=== PATIENT | female | born 1970 | race African-American/Black ===

== ENCOUNTER 2016-11-12 22:08 | Inpatient (IN) | payer SELFPAY ==
[~2016-11-12] VITALS: Ht 177.8 cm; Wt 76.2 kg
[2016-11-13] MEDS ORDERED: NITROGLYCERIN OINT 1GM/INCH UDPKT TD ONE (00:15)
[2016-11-13] MEDS ORDERED: ASPIRIN 81MG TABLET PO ONE (00:15)
[2016-11-13 00:41] LABS: BASOPHILS % 0.6 % (0.0-2.0); DIFFERENTIAL COMMENT 0; EOSINOPHILS % 2.7 % (0.0-5.0); HEMATOCRIT. 30.2 % (36.0-48.0); HEMOGLOBIN. 9.3 g/dL (12.0-16.0); MEAN CORPUSCULAR HEMOGLOBIN 22.2 pg (28.0-32.0); MEAN CORPUSCULAR HGB CONC 30.7 g/dL (31.0-37.0); MEAN CORPUSCULAR VOLUME 72.3 fL (81.0-99.0); MONOCYTES % 7.9 % (2.0-8.0); NEUTROPHILS % 60.8 % (40.0-76.0); PLATELET 219 x1000/uL (130-400); RED BLOOD CELL COUNT 4.17 mill/uL (4.2-5.4); RED CELL DISTRIBUTION WIDTH 15.9 % (11.6-14.6); WHITE BLOOD COUNT 6.1 x1000/uL (4.5-11.0)
[2016-11-13 00:55] LABS: ALANINE AMINOTRANSFERASE 32 IU/L (13-61); ALBUMIN 2.3 g/dL (3.4-5.0); ANION GAP 14; CALCIUM 7.5 mg/dL (8.5-10.1); CARBON DIOXIDE 20 mEq/L (21-32); CHLORIDE 106 mEq/L (98-107); ETHANOL BLOOD < 10 mg/dL; INDEX HEMOLYSI 1 (1-3); INDEX ICTERIC 1 (1-4); INDEX LIPEMIC 1 (1-3); NT PRO B-TYPE NATRIURETIC PEP 3768 pg/mL (5-125); TROPONIN I 0.05 ng/mL (0.00-0.04); UREA NITROGEN BLOOD 30 mg/dL (7-21); eGFR 23 mL/min (>60)
[2016-11-13] MEDS ORDERED: INSULIN REGULAR (HUMULIN R) 300UNITS/3ML SUBCUT ONE (05:30)
[2016-11-13 06:30] VITALS: BP 166/83
[2016-11-13 08:00] VITALS: BP_SYST 137; BP_SYST 166; BP_DIAS 73; BP_DIAS 83
[2016-11-13] MEDS ORDERED: DEXTROSE 50% WATER 50ML SYRINGE IV PRN (10:00)
[2016-11-13] MEDS ORDERED: CLONIDINE 0.1MG TABLET PO PRN (10:00)
[2016-11-13] MEDS ORDERED: ACETAMINOPHEN 325MG TABLET PO PRN (10:00)
[2016-11-13] MEDS: BLOOD SUGAR DIAGNOSTIC STRIP TEST SCH ×3 (11:32→21:45)
[2016-11-13] MEDS: INSULIN LISPRO 100 UNITS/ML SUBCUT SCH ×3 (11:36→21:00)
[2016-11-13] MEDS: CLOPIDOGREL 75MG TABLET PO SCH (11:49)
[2016-11-13] MEDS: INSULIN DETEMIR UD 100 UNITS/ML SYR SUBCUT SCH (11:50)
[2016-11-13] MEDS: FUROSEMIDE 40MG/4ML VIAL IV SCH (11:50)
[2016-11-13 12:00] VITALS: BP 102/71
[2016-11-13] MEDS: HYDROMORPHONE HCL/PF 2MG/ML CPJ IV PRN (13:52)
[2016-11-13 15:13] LABS: TROPONIN I 0.06 ng/mL (0.00-0.04)
[2016-11-13] MEDS: ONDANSETRON HCL 4MG/2ML VIAL IV PRN ×2 (15:42→21:45)
[2016-11-13 16:00] VITALS: BP 148/84
[2016-11-13] MEDS ORDERED: ISOS30TA6 PO (17:12)
[2016-11-13] MEDS ORDERED: ASPI-1035 PO (17:12)
[2016-11-13] MEDS ORDERED: CLOP75TA33 PO (17:12)
[2016-11-13] MEDS ORDERED: LORA5SOL6 PO (17:12)
[2016-11-13] MEDS ORDERED: ATOR10TA PO (17:12)
[2016-11-13] MEDS ORDERED: CARV3.1242 PO (17:12)
[2016-11-13] MEDS ORDERED: INSU3INS6 SUBCUT (17:12)
[2016-11-13 20:00] VITALS: BP 134/73
[2016-11-13] MEDS: CARVEDILOL 3.125 MG TABLET PO SCH (21:45)
[2016-11-14] VITALS: BP 179/99
[2016-11-14 00:06] LABS: TROPONIN I 0.05 ng/mL (0.00-0.04)
[2016-11-14] MEDS: HYDROMORPHONE HCL/PF 2MG/ML CPJ IV PRN (00:18)
[2016-11-14 04:00] VITALS: BP 163/92
[2016-11-14] MEDS: BLOOD SUGAR DIAGNOSTIC STRIP TEST SCH ×3 (06:06→17:08)
[2016-11-14] MEDS: ONDANSETRON HCL 4MG/2ML VIAL IV PRN (06:27)
[2016-11-14] MEDS: INSULIN LISPRO 100 UNITS/ML SUBCUT SCH ×3 (06:49→17:40)
[2016-11-14 08:00] VITALS: BP 161/86
[2016-11-14] MEDS ORDERED: ASPIRIN 81MG EC TABLET PO SCH (09:00)
[2016-11-14] MEDS: FUROSEMIDE 40MG/4ML VIAL IV SCH (09:47)
[2016-11-14] MEDS: CLOPIDOGREL 75MG TABLET PO SCH (09:48)
[2016-11-14] MEDS: CARVEDILOL 3.125 MG TABLET PO SCH (09:48)
[2016-11-14] MEDS: INSULIN DETEMIR UD 100 UNITS/ML SYR SUBCUT SCH (09:49)
[2016-11-14 11:14] LABS: BASOPHILS % 0.6 % (0.0-2.0); DIFFERENTIAL COMMENT 0; EOSINOPHILS % 1.9 % (0.0-5.0); HEMATOCRIT. 31.2 % (36.0-48.0); HEMOGLOBIN. 9.6 g/dL (12.0-16.0); LYMPHOCYTES % 28.7 % (20.0-50.0); MEAN CORPUSCULAR HGB CONC 30.7 g/dL (31.0-37.0); MEAN CORPUSCULAR VOLUME 71.8 fL (81.0-99.0); MEAN PLATELET VOLUME 8.8 fl (7.4-10.4); MONOCYTES % 4.6 % (2.0-8.0); NEUTROPHILS % 64.2 % (40.0-76.0); PLATELET 201 x1000/uL (130-400); RED BLOOD CELL COUNT 4.35 mill/uL (4.2-5.4); RED CELL DISTRIBUTION WIDTH 16.2 % (11.6-14.6); WHITE BLOOD COUNT 6.2 x1000/uL (4.5-11.0)
[2016-11-14 11:24] LABS: ALANINE AMINOTRANSFERASE 28 IU/L (13-61); ALBUMIN 2.3 g/dL (3.4-5.0); ANION GAP 13; CALCIUM 7.8 mg/dL (8.5-10.1); CARBON DIOXIDE 22 mEq/L (21-32); CHLORIDE 106 mEq/L (98-107); INDEX HEMOLYSI 1 (1-3); INDEX ICTERIC 1 (1-4); INDEX LIPEMIC 1 (1-3); UREA NITROGEN BLOOD 31 mg/dL (7-21); eGFR 24 mL/min (>60)
[2016-11-14 12:26] VITALS: BP 142/73
[2016-11-14 16:00] VITALS: BP 145/78
== END 2016-11-14 18:20 | disposition home or self-care (01) | DRG 198 ==
LOC: ER 22:11 → 8WST 11-13 01:28
PROVIDERS: ADMIT Hospitalist; ATTEND Hospitalist
DX: I24.9 Acute ischemic heart disease, unspecified (principal); E11.22 Type 2 diabetes mellitus with diabetic chronic kidney disease; E11.65 Type 2 diabetes mellitus with hyperglycemia; I12.9 Hypertensive chronic kidney disease with stage 1 through stage 4 chronic kidney disease, or unspecified chronic kidney disease; N18.9 Chronic kidney disease, unspecified; J45.909 Unspecified asthma, uncomplicated; D64.9 Anemia, unspecified; J44.9 Chronic obstructive pulmonary disease, unspecified; Z86.73 Personal history of transient ischemic attack (TIA), and cerebral infarction without residual deficits; Z95.5 Presence of coronary angioplasty implant and graft; Z59.0 Homelessness
CPT/HCPCS: 36415; 71010; 80053; 82550; 82962; 83880; 84484; 85025; 93005; 93306; 93970; 99285; G0482; J1170; J1815; J1940; J2405